=== PATIENT | female | born 1985 | race Caucasian/White ===

== ENCOUNTER 2017-01-26 06:06 | Emergency (ER) | payer MEDICAID ==
[~2017-01-26 06:06] MED LIST: CHERATUSSIN AC118 M1 PO; IBUPROFEN600 M1 PO; LEVAQUIN750 M1 PO; NO HOME MEDICATION XX; NORCO 5/3251 TA1 PO; PROVENTIL HFA6.7 G1 IH; PROVENTIL HFA6.7 G1 INH; RISPERDAL1 M2 PO; RISPERIDONE0.5 MG PO; WELLBUTRIN SR200 MG PO; ZITHROMAX250 M1 PO; ZOFRAN4 M1 PO
[2017-01-26] MEDS ORDERED: QVAR8.7 G1 INH (06:23)
[2017-01-26] MEDS ORDERED: DELTASONE20 MG PO (06:58)
[2017-01-26] MEDS ORDERED: PROAIR HFA8.5 GM INH (06:58)
== END 2017-01-26 07:02 ==
LOC: EDMED 06:06
DX: J45.901 Unspecified asthma with (acute) exacerbation (principal); F31.9 Bipolar disorder, unspecified; Z90.89 Acquired absence of other organs; Z79.51 Long term (current) use of inhaled steroids; F17.200 Nicotine dependence, unspecified, uncomplicated
CPT/HCPCS: J7512

== ENCOUNTER 2017-05-25 10:29 | Emergency (ER) | payer OTHER, MEDICAID ==
[~2017-05-25] VITALS: Ht 157.5 cm; Wt 58.2 kg
[~2017-05-25 10:29] MED LIST changes: +DELTASONE20 MG PO; +PROAIR HFA8.5 GM INH; +QVAR8.7 G1 INH
[2017-05-25 11:16] LABS: BASO % 0.6 % (0-2); EOS % 0.6 % (0-7); HCT-HEMATOCRIT 33.1 % (34.0-49.0); IMMATURE GRANULOCYTES ABSOLUTE 0.02 tho/cmm (0-0.03); IMMATURE GRANULOCYTES PERCENT 0.6 % (0-0.3); LYMPH % 31.7 % (20-45); MCH (MEAN CORPUSCULAR HGB) 30.8 pg (28.0-32.0); MCHC MEAN CORPUSCULAR HGB CONC 33.2 % (32.0-36.0); MCV (MEAN CELL VOLUME) 92.7 fl (82.0-96.0); MEAN PLATELET VOLUME 10.1 cmc (9.4-12.4); MONO % 9.2 % (0-12); MONOCYTE ABSOLUTE COUNT 0.3 tho/cmm (0.0-1.2); NEUTROPHIL ABSOLUTE COUNT 1.9 tho/cmm (1.6-8.0); NEUTROPHIL-AUTOMATED 1.9 tho/cmm (1.6-8.0); NEUTROPHILS % 57.3 % (40-80); PLATELET COUNT 153 tho/cmm (150-450); RED BLOOD COUNT 3.57 mil/cmm (4.00-5.20); RED CELL DISTRIBUTION WIDTH 15.3 % (12.4-16.4); WHITE BLOOD COUNT 3.3 tho/cmm (4.0-10.0)
[2017-05-25 11:26] LABS: PREGNANCY-URINE NEGATIVE (NEGATIVE)
[2017-05-25 11:34] LABS: URINE APPEARANCE CLEAR; URINE BILIRUBIN NEGATIVE (NEG); URINE BLOOD NEGATIVE (NEG); URINE COLOR YELLOW; URINE GLUCOSE (UA) NEGATIVE (NEG); URINE KETONE NEGATIVE (NEG); URINE LEUKOCYTE ESTERASE NEGATIVE (NEG); URINE NITRITE NEGATIVE (NEG); URINE PROTEIN MODERATE (NEG)
[2017-05-25 11:39] LABS: ALCOHOL (ETOH) 76 mg/dl (<10); ANION GAP 16 mmol/L (0-20); BLOOD UREA NITROGEN 4 mg/dl (6-24); CALCIUM 8.8 mg/dl (8.5-10.5); CARBON DIOXIDE-VENOUS 21 mmol/L (22-32); CHLORIDE 104 mmol/l (96-110); GLUCOSE 100 mg/dL (70-110); POTASSIUM 3.7 mmol/L (3.7-5.1); SODIUM 137 mmol/L (135-145); eGFR VALUE FOR BLACK >90 mL/Min
[2017-05-25 11:46] LABS: URINE EPITHELIAL CELLS 0-1 /[HPF] (0-10); URINE RBC RARE /[HPF] (0-5); URINE WBC 0 /[HPF] (0-5)
== END 2017-05-25 12:20 ==
LOC: EDMED → EDBD 10:29 → EDMED 10:29
PROVIDERS: Emergency Medicine
PROC: BN2 Imaging, Skull and Facial Bones, Computerized Tomography (CT Scan) (ICD-10-PCS; principal; 2017-05-25)
DX: S09.90XA Unspecified injury of head, initial encounter (principal); S00.03XA Contusion of scalp, initial encounter; R55 Syncope and collapse; W18.30XA Fall on same level, unspecified, initial encounter
CPT/HCPCS: G0480; J7030